=== PATIENT | male | born 1960 | race Caucasian/White ===

== ENCOUNTER 2018-10-03 07:15 | Emergency (ER) | payer MEDICAID ==
[~2018-10-03] VITALS: Ht 172.7 cm; Wt 81.6 kg
[2018-10-03] MEDS ORDERED: amLODIPine BESYLATE 5 MG TAB PO ONE ×2 (07:30→12:45)
[2018-10-03] MEDS ORDERED: LORazepam 0.5 MG TAB PO ONE (08:00)
[2018-10-03 08:23] LABS: Basophils # (auto) 0 uL; Basophils % (auto) 0.4 % (0.0-2.0); Eosinophils # (auto) 0.2 uL; Hematocrit 49.6 % (41.0-53.0); Hemoglobin 16.8 g/dL (13.5-17.5); Lymphocytes # (auto) 3.1 uL; Lymphocytes % (auto) 27.9 % (10.0-50.0); Mean Corpuscular Hemoglobin 32.3 pg (28.0-32.0); Mean Corpuscular Volume 95.1 fL (80.0-100.0); Monocytes # (auto) 0.8 uL; Monocytes % (auto) 7.1 % (0.0-12.0); Neutrophils # (auto) 6.9 uL; Neutrophils % (auto) 62.6 % (37.0-80.0); Platelet Count (auto) 263 10^3/uL (140-450); Red Blood Cells 5.21 10^6/uL (4.5-5.90); Red Cell Distribution Width 13.3 % (11.8-14.3)
[2018-10-03] MEDS ORDERED: cloNIDine HCL 0.1 MG TAB PO ONE (08:30)
[2018-10-03 08:43] LABS: Alanine Aminotransferase 46 U/L (16-61); Albumin 3.9 g/dL (3.4-5.0); Anion Gap 9 (5-15); Aspartate Aminotransferase 20 U/L (15-37); BUN/Creatinine Ratio 26.8; Blood Urea Nitrogen 22 mg/dL (7-18); Calcium 8.5 mg/dL (8.5-10.1); Carbon Dioxide 22 mmol/L (21-32); Chloride 109 mmol/L (98-107); GFR African American 125 mL/min; GFR Non-African American 103 mL/min; Glucose 93 mg/dL (74-106); Potassium 4.4 mmol/L (3.5-5.1); Sodium 140 mmol/L (136-145)
[2018-10-03 08:46] LABS: INR 0.9 (0.9-1.15); Partial Thromboplastin Time 34.1 sec (23.78-33.04); Prothrombin Time 9.7 sec (9.27-12.13)
[2018-10-03 08:52] LABS: Alkaline Phosphatase 133 U/L (45-117); Bilirubin, Total 0.4 mg/dL (0.2-1.0); Total Protein 7.5 g/dL (6.4-8.2)
[2018-10-03] MEDS ORDERED: hydrALAZINE HCL 20 MG/ML VL IV ONE (09:45)
[2018-10-03 11:54] LABS: Urine Bacteria NONE SEEN /hpf (None Seen); Urine Blood Negative /uL (Negative); Urine Mucus FEW (None Seen); Urine Specific Gravity 1.018 (1.001-1.035); Urine WBC 2 /hpf (0 - 3)
[2018-10-03] MEDS ORDERED: LABETALOL HCL 5 MG/ML ML 20ML VIAL IV ONE (12:00)
[2018-10-03] MEDS ORDERED: LABETALOL HCL 5 MG/ML 4ML SYRINGE IV ONE (12:15)
[2018-10-03 13:56] VITALS: BP 185/126
== END 2018-10-03 13:58 | disposition left against medical advice (07) ==
LOC: ER 07:15
DX: I10 Essential (primary) hypertension (principal); F17.210 Nicotine dependence, cigarettes, uncomplicated; F12.90 Cannabis use, unspecified, uncomplicated; Z53.29 Procedure and treatment not carried out because of patient's decision for other reasons
CPT/HCPCS: 36415; 71046; 80053; 81001; 84484; 85025; 85610; 85730; 93005; 94761; 96374; 96375; 99284; J0360; J3490; J7030